=== PATIENT | female | born 1965 | race Caucasian/White ===

== ENCOUNTER 2018-11-03 09:45 | Day surgery (SDC) | payer OTHER ==
[~2018-11-03] VITALS: Ht 160 cm; Wt 62.4 kg
[~2018-11-03 09:45] MED LIST: ARIP10 PO; Estradiol0.5 MG PO; GABA300 PO; NAPR220 PO; OMEPRAZOLE20 MG PO; SERT25 PO; SUCR1 PO; SUMA25 PO; TOPI50 PO; TRAZ50 PO
--- NOTE | 2018-11-03 10:12 | NUR ---
History, Chart, Medications and Allergies reviewed before start of procedure. Patient confirms NPO status and agrees with scheduled surgery. Lungs clear T/O to Auscultation. Patient States Post-Procedure ride home has been arranged, WILL CALL HER SON WHEN SHE IS READY. Pre-Op teaching done. Pt verbalizes understanding.
--- NOTE | 2018-11-03 10:59 | NUR ---
11/03/18 1059 Namrata Blandon History, Chart, Medications and Allergies reviewed before start of procedure.PATIENT DETERMINED TO BE ASA APPROPRIATE FOR PROPOFOL SEDATION PRIOR TO START OF PROCEDURE BY .MONITOR INTACT WITH CONTINUOUS PULSE OXIMETRY AND INTERMITTENT BP.3-LEAD EKG REVIEWED WITH PHYSICIAN PRIOR TO START OF PROCEDURE.O2 VIA N/C INTACT THROUGHOUT SEDATION/PROCEDURE.
--- NOTE | 2018-11-03 11:24 | NUR ---
PT AWAKE, CONVERSING WITH STAFF. ARRIVED TO RECOVERY AREA APPROX 8 MINUTES AGO. PT SIPPING ON WATER WITHOUT DIFFICULTY. NO C/O PAIN OR DISCOMFORT.
--- NOTE | 2018-11-03 11:42 | NUR ---
PT TOLERATED RECOVERY PERIOD WITHOUT DIFFICULTY. DRANK PO FLUIDS, DRESSED SELF PRIOR TO DISCHARGE. REVIEWED DISCHARGE INSTRUCTIONS WITH PATIENT WHO VERBALIZED UNDERSTANDING OF ALL. IV DC TIP INTACT AND PATIENT DISCHARGED HOME VIA WC WITH SON TO DRIVE HER AT THIS TIME.
== END 2018-11-03 22:37 | disposition home or self-care (01) ==
LOC: ORSCMMR 09:45 → ORD 10:30 → ORSCMMR 10:30
PROVIDERS: Internal Medicine Gastroenterology
PROC: 0DB78ZX Excision of Stomach, Pylorus, Via Natural or Artificial Opening Endoscopic, Diagnostic (ICD-10-PCS; principal; 2018-11-03 10:30)
PROC: 0DB48ZX Excision of Esophagogastric Junction, Via Natural or Artificial Opening Endoscopic, Diagnostic (ICD-10-PCS; principal; 2018-11-03 10:30)
PROC: 0DB88ZX Excision of Small Intestine, Via Natural or Artificial Opening Endoscopic, Diagnostic (ICD-10-PCS; principal; 2018-11-03 10:30)
DX: R10.13 Epigastric pain (principal); R63.4 Abnormal weight loss; K44.9 Diaphragmatic hernia without obstruction or gangrene; M79.7 Fibromyalgia; Z79.899 Other long term (current) drug therapy
CPT/HCPCS: 88305; 88342; J2704; J7120

== ENCOUNTER 2019-02-10 07:57 | Day surgery (SDC) | payer OTHER ==
[~2019-02-10] VITALS: Wt 59.4 kg
--- NOTE | 2019-02-10 08:31 | NUR ---
Ambulatory in Day Surgery History, Chart, Medications and Allergies reviewed before start of procedure.Lungs clear T/O to Auscultation. Patient confirms NPO status and agrees with scheduled surgery. Patient States Post-Procedure ride home has been arranged.
--- NOTE | 2019-02-10 10:42 | NUR ---
02/10/19 1042 Namrata Blandon History, Chart, Medications and Allergies reviewed before start of procedure.PATIENT DETERMINED TO BE ASA APPROPRIATE FOR PROPOFOL SEDATION PRIOR TO START OF PROCEDURE BY .MONITOR INTACT WITH CONTINUOUS PULSE OXIMETRY AND INTERMITTENT BP.3-LEAD EKG REVIEWED WITH PHYSICIAN PRIOR TO START OF PROCEDURE.O2 VIA N/C INTACT THROUGHOUT SEDATION/PROCEDURE.PT WITH SOME HYPOTENSION DURING CASE. MD AWARE, MEDS STOPPED EARLY. PT AWAKE AT END OF CASE, TOLERATED WELL.
--- NOTE | 2019-02-10 11:06 | NUR ---
Discharge instructions reviewed with patient. Patient verbalizes understanding. Copy given to patient to take home. Discharged via wheelchair to private car for ride home.
== END 2019-02-10 11:10 | disposition home or self-care (01) ==
LOC: ORSCMMR 07:57 → ORD 09:00 → ORSCMMR 09:00
PROVIDERS: Internal Medicine Gastroenterology
PROC: 0DJD8ZZ Inspection of Lower Intestinal Tract, Via Natural or Artificial Opening Endoscopic (ICD-10-PCS; principal; 2019-02-10 09:00)
DX: R63.4 Abnormal weight loss (principal); K21.9 Gastro-esophageal reflux disease without esophagitis; Z79.899 Other long term (current) drug therapy
CPT/HCPCS: J2250; J2704; J7120